=== PATIENT | male | born 1975 | race Caucasian/White ===

== ENCOUNTER → 2017-02-27 | Outpatient (CLI) | payer OTHER ==
[2017-02-27 08:04] LABS: Blood Urea Nitrogen 23 mg/dL (9-20); Non-African American GFR(MDRD) >60 (>60 ml/min/1.73 sqM)
--- NOTE | 2017-02-27 09:25 | CT ---
EXAMINATION TYPE: CT abdomen wo/w con DATE OF EXAM: 02/27/2017 8:37 AM COMPARISON: CT abdomen 26 Feb 2016 HISTORY: Renal mass CT DLP: 1669 mGycm Automated exposure control for dose reduction was used. TECHNIQUE: Helical acquisition of images was performed from the lung bases through the top of iliac crest to include entire abdomen pre- and postadministration of intravenous contrast. CONTRAST: Performed with Oral Contrast and without and with IV Contrast, patient injected with 100 mL of Omnipa que 300. FINDINGS: LUNG BASES: No significant abnormality is appreciated. LIVER/GB: Liver shows a stable appearance, it is enlarged and shows low attenuation compatible with f atty infiltration, gallbladder is normal. PANCREAS: No significant abnormality is seen. SPLEEN: No significant abnormality is seen. ADRENALS: No significant abnormality is seen. KIDNEYS: Stable, there may be a small subcentimeter cortical cyst upper pole right kidney. BOWEL: No significant abnormality is seen. LYMPH NODES: No significant abnormality is appreciated. OSSEOUS STRUCTURES: No significant abnormality is seen. FREE AIR: No Free Air visible ASCITES: None visible. RETROPERITONEAL ADENOPATHY: No Retroperitoneal Adenopathy visible. OTHER: Bladder and distal ureters not included on CT abdomen exam. IMPRESSION: ESSENTIALLY STABLE EXAM, NO ABNORMALITY EVIDENT TO ACCOUNT FOR PATIENT'S SYMPTOMS.
== END | disposition home or self-care (01) ==
LOC: RADCTMAIN 07:19
PROVIDERS: ATTEND Family Medicine
DX: N28.89 Other specified disorders of kidney and ureter (principal)
CPT/HCPCS: 82565; 84520; 74170; 36415; Q9967

== ENCOUNTER 2018-11-07 19:10 | Emergency (ER) | payer OTHER ==
[2018-11-07] MEDS ORDERED: IBUPROFEN 600 MG TAB PO STA (20:07)
[2018-11-07] MEDS ORDERED: guaiFENesin-DM 600/30MG 1 EACH TAB.ER.12H PO STA (20:07)
--- NOTE | 2018-11-07 20:11 | ED ---
Fever HPI - General Chief Complaint: Fever Stated Complaint: Fever Time Seen by Provider: 11/07/18 19:54 Source: patient Mode of arrival: ambulatory Limitations: no limitations - History of Present Illness Initial Comments: 43-year-old male patient presents to the emergency department today for evaluation of fever 2 days. Patient states his temperature has been between 100 and 104 for the past 2 days. States he is coughing and is coughing up frothy sputum. Denies hemoptysis. Denies any sore throat or nasal congestion. Denies any abdominal pain, nausea, vomiting, constipation, or diarrhea. Denies any rash or wounds. Denies any sick contacts. Patient denies any recent shortness breath, chest pain, back pain, numbness, tingling, dizziness, weakness , hematuria, dysuria, urinary urgency, urinary frequency, headache, visual changes, or any other complaints. - Related Data Home Medications Medication Instructions Recorded Confirmed Acetaminophen [Tylenol] 975 - 1,300 mg PO Q4-6H PRN 11/07/18 11/07/18 Cholecalciferol [Vitamin D3] 1,000 unit PO DAILY 11/07/18 11/07/18 Glimepiride [Amaryl] 2 mg PO BID 11/07/18 11/07/18 Ibuprofen [Motrin Ib] 600 - 800 mg PO Q4-6H PRN 11/07/18 11/07/18 Levothyroxine Sodium [Synthroid] 100 mcg PO DAILY 11/07/18 11/07/18 Lisinopril [Zestril] 10 mg PO DAILY 11/07/18 11/07/18 clonazePAM [KlonoPIN] 1 mg PO HS PRN 11/07/18 11/07/18 metFORMIN HCL [Glucophage] 1,000 mg PO BID 11/07/18 11/07/18 Previous Rx's Medication Instructions Recorded Benzonatate [Tessalon Perles] 100 mg PO TID #15 cap 11/07/18 Allergies Allergy/AdvReac Type Severity Reaction Status Date / Time No Known Allergies Allergy Verified 11/07/18 20:34 Review of Systems ROS Statement: Those systems with pertinent positive or pertinent negative responses have been documented in the HPI. ROS Other: All systems not noted in ROS Statement are negative. Past Medical History Past Medical History: Diabetes Mellitus History of Any Multi-Drug Resistant Organisms: None Reported Past Surgical History: Orthopedic Surgery Additional Past Surgical History / Comment(s): R Hand sx Past Psychological History: No Psychological Hx Reported Smoking Status: Current every day smoker Past Alcohol Use History: Rare Past Drug Use History: Marijuana General Exam Limitations: no limitations General appearance: alert, in no apparent distress, other (Physical well- developed, well-nourished adult male patient in no acute distress. Vital signs upon presentation are temperature 99.4F, pulse 70, respirations 22, blood pressure 106/75, pulse ox 100% on room air.) Eye exam: Present: normal appearance, PERRL, EOMI. Absent: scleral icterus, conjunctival injection, periorbital swelling ENT exam: Present: normal exam, normal oropharynx, mucous membranes moist, TM's normal bilaterally Neck exam: Present: normal inspection. Absent: tenderness, meningismus, lymphadenopathy Respiratory exam: Present: normal lung sounds bilaterally, wheezes (Scattered expiratory wheezing in the posterior lung hunter.). Absent: respiratory distress, rales, rhonchi, stridor Cardiovascular Exam: Present: regular rate, normal rhythm, normal heart sounds. Absent: systolic murmur, diastolic murmur, rubs, gallop, clicks GI/Abdominal exam: Present: soft, normal bowel sounds. Absent: distended, tenderness, guarding, rebound, rigid Neurological exam: Present: alert, oriented X3, CN II-XII intact Psychiatric exam: Present: normal affect, normal mood Skin exam: Present: warm, dry, intact, normal color. Absent: rash Course Vital Signs 11/07/18 11/07/18 19:39 21:43 Temperature 99.4 F 99.2 F Pulse Rate 70 88 Respiratory 22 18 Rate Blood Pressure 106/75 128/88 O2 Sat by Pulse 100 97 Oximetry Medical Decision Making - Medical Decision Making 43-year-old male patient presented to the emergency department today for evaluation of fever and cough. Physical examination was unremarkable. Lungs are clear to auscultation with good air movement. Chest x-ray showed no acute cardiopulmonary process. Influenza testing was negative. I did discuss findings and results with the patient. We did discuss his symptoms are most likely related to a viral upper respiratory infection. He is educated regarding supportive care. Is instructed to follow-up with his primary care physician for recheck in 1-2 days. Return parameters were discussed in detail. He verbalizes understanding and agrees with this plan - Lab Data Lab Results 11/07/18 Range/Units Unknown Influenza Type A RNA Not Detected (Not Detectd) Influenza Type B (PCR) Not Detected (Not Detectd) - Radiology Data Radiology results: report reviewed, image reviewed Two-view x-ray of the chest is obtained. Report reviewed in its entirety. Impression by Dr. Allison shows normal chest with no change. Disposition Clinical Impression: Viral upper respiratory illness Disposition: HOME SELF-CARE Condition: Good Instructions: Fever in Adults (ED), Upper Respiratory Infection (ED) Additional Instructions: Increase fluids. Alternate Tylenol Motrin for fever control. Follow-up through primary care physician for recheck in 1-2 days. Return immediately for any new, worsening, or concerning symptoms. Prescriptions: Benzonatate [Tessalon Perles] 100 mg PO TID #15 cap Is patient prescribed a controlled substance at d/c from ED?: No Referrals: Vamshi Avalos MD [Primary Care Provider] - 1-2 days Time of Disposition: 22:24
--- NOTE | 2018-11-07 21:27 | XR ---
EXAMINATION TYPE: XR chest 2V DATE OF EXAM: 11/07/2018 COMPARISON: 10/02/2013 HISTORY: Cough and fever TECHNIQUE: Frontal and lateral views of the chest are obtained. FINDINGS: Heart and mediastinum are normal. Lungs are clear. Diaphragm is normal. Bony thorax is int act. IMPRESSION: Normal chest. No change.
[2018-11-07 21:44] VITALS: BP 128/88; PULSE 88; RESP 18; TEMP 99.2
== END 2018-11-07 22:45 | disposition home or self-care (01) ==
LOC: EC 19:10
DX: B34.9 Viral infection, unspecified (principal); E11.9 Type 2 diabetes mellitus without complications; F17.200 Nicotine dependence, unspecified, uncomplicated; Z98.890 Other specified postprocedural states; Z79.84 Long term (current) use of oral hypoglycemic drugs; Z79.890 Hormone replacement therapy; Z79.899 Other long term (current) drug therapy
CPT/HCPCS: 71046; 87502; 99283